=== PATIENT | female | born 1980 | race Caucasian/White ===

== ENCOUNTER 2022-04-11 12:53 | Emergency (ER) | payer OTHER, SELFPAY ==
--- NOTE | 2022-04-11 12:57 | ED.SKABFB ---
HPI - Skin/Abscess/Foreign Bdy General Chief complaint: Skin/Abscess/Foreign Body Stated complaint: Sunburn/Feet Swelling Time Seen by Provider: 04/11/22 12:57 Source: patient and RN notes reviewed History of Present Illness HPI narrative: Patient is a 41-year-old female who presents the urgent care with complaints of bilateral feet swelling due to diffuse sunburn. Patient states that she was at [employer] on Sunday and used 30 SPF. Patient states she did reapply the sunscreen several times. States that she has been taking ibuprofen for the pain and using aloe. Denies of any lethargy, fatigue, palpitations. No other acute complaints. No acute distress noted. Patient aware of the plan of care. Some parts of this dictation were generated by voice recognition software and may contain typographical and/or grammatical inaccuracies. Related Data Home Medications Medication Instructions Recorded Confirmed No Home Medications 04/11/22 04/11/22 Allergies Allergy/AdvReac Type Severity Reaction Status Date / Time No Known Allergies Allergy Verified 04/11/22 13:05 Review of Systems Review of Systems: CONSTITUTIONAL: Denies fever, chills, or sweats. EYES: Denies visual changes, redness, or discharge. ENT: Denies rhinorrhea, congestion, sore throat, or otalgia. CARDIOVASCULAR: Denies chest pain, palpitations, or edema. RESPIRATORY: Denies cough or dyspnea. GASTROINTESTINAL: Denies abdominal pain, nausea, vomiting, or diarrhea. GENITOURINARY: Denies dysuria or hematuria. SKIN: Reports of painful sunburn MUSCULOSKELETAL: Denies back pain, joint pain, or myalgia. Reports of bilateral feet swelling NEUROLOGIC: Denies headache, numbness, or weakness. All other systems reviewed are negative, except as documented in HPI. PMFSH Comments At the time of my signature, I reviewed and agree with the nursing past medical, surgical, social, and family history. There is no relevant family history pertinent to the patient complaint. Exam Narrative: GENERAL: This is a well-nourished, well-developed patient, in no apparent distress. HEAD: normocephalic, atraumatic. EYES: PERRL. Sclera clear/white. Vision is grossly intact. EARS: External ears normal NOSE: External nose normal with no obvious nasal discharge, nares without redness, no rhinorrhea. THROAT: Mucous membranes moist NECK: Neck supple CARDIOVASCULAR: Regular rate and rhythm without murmurs, gallops, or rubs. RESPIRATORY: Clear to auscultation. Breath sounds equal bilaterally. No wheezes, rales, or rhonchi. SKIN: First-degree nonblistering sunburn diffusely noted without involving the trunk. NEURO: awake, alert, and oriented to person, place and time. There were no obvious focal neurologic abnormalities. EXTREMITIES: Bilateral nonpitting lower extremity edema with positive strong bilateral pedal pulses. Course Course Level of Care: Express Care Visit Vital Signs Vital signs: Vital Signs Temperature 98.3 F 04/11/22 13:02 Pulse Rate 96 04/11/22 13:02 Respiratory Rate 16 04/11/22 13:02 Blood Pressure 150/71 H 04/11/22 13:02 Pulse Oximetry 98 04/11/22 13:02 Oxygen Delivery Room Air 04/11/22 13:02 Temperature 98.3 F 04/11/22 13:02 Pulse Rate 96 04/11/22 13:02 Respiratory Rate 16 04/11/22 13:02 Blood Pressure 150/71 H 04/11/22 13:02 Pulse Oximetry 98 04/11/22 13:02 Oxygen Delivery Room Air 04/11/22 13:02 Reviewed-patient is informed that they may have pre-hypertension or hypertension based on a blood pressure reading in the department. I recommend the patient call the primary care provider listed on their discharge instructions or a physician of their choice this week to arrange follow-up for further evaluation of possible pre-hypertension or hypertension. MDM - Skin/Abscess/Foreign Bdy MDM Narrative Medical decision making narrative: Advised patient to cool her body down with clots. Continue to use aloe. Do not go out in the sun
[2022-04-11 13:02] VITALS: BP 150/71; PULSE 96; RESP 16; TEMP 36.8; O2SAT 98
== END 2022-04-11 13:13 | disposition home or self-care (01) ==
PROVIDERS: Emergency Provider Nurse Practitioner Family
DX: L55.0 Sunburn of first degree (principal)
CPT/HCPCS: 99212; G0463

== ENCOUNTER 2023-12-29 16:26 | Emergency (ER) | payer OTHER, SELFPAY ==
--- NOTE | ~2023-12-29 | XR_ITS ---
EXAMINATION: XR knee LT min 4V DATE: 12/29/2023 16:58 INDICATION: Left knee pain. TECHNIQUE: 6 views of left knee were obtained. COMPARISON: None. FINDINGS: Bone alignment is normal. No fracture. There is mild tricompartmental osteoarthritis. No kn ee joint effusion. IMPRESSION: 1. Mild left knee osteoarthritis. Reviewed, dictated and finalized at location [facility]
[2023-12-29 16:32] VITALS: BP 121/71; PULSE 64; RESP 20; TEMP 36.4; O2SAT 100
--- NOTE | 2023-12-29 17:22 | ED.LOWEXIN ---
HPI - Extremity Injury (Lower) General Chief Complaint: Extremity Injury, Lower Stated Complaint: left knee pain Time Seen by Provider: 12/29/23 17:15 Source: patient, RN notes reviewed and old records reviewed Mode of arrival: ambulatory Limitations: no limitations History of Present Illness HPI Narrative: 43 year old female present to [facility] care with complaints of left knee pain for the past week with no known injury. Patient reports that she was kneeling on concrete a few days ago moving box at work. 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 Patient reports pain mainly toarea under knee cap anteriorly with some pressure also to posterior knee region. Patient describes pain as ache with some sharp shoting pain at times, tightmness mainly to posterior aspect of left knee, no acute swelling noted. Patient does have noted limping gait. MD complaint: other (left knee pain) Onset (ago): week(s) (increased pain for week) Severity scale (1-10): 6 Treatments prior to arrival: other (diclofenac ointment) Related Data Home Medications Medication Instructions Recorded Confirmed No Home Medications 04/11/22 12/29/23 Allergies Allergy/AdvReac Type Severity Reaction Status Date / Time No Known Allergies Allergy Verified 12/29/23 17:26 Review of Systems Review of Systems: CONSTITUTIONAL: Denies fever, chills, or sweats. EYES: Denies visual changes, redness, or discharge. ENT: Denies rhinorrhea, congestion, sore throat, or otalgia. CARDIOVASCULAR: Denies chest pain, palpitations, or edema. RESPIRATORY: Denies cough or dyspnea. GASTROINTESTINAL: Denies abdominal pain, nausea, vomiting, or diarrhea. GENITOURINARY: Denies dysuria or hematuria. SKIN: Denies rash or itching. MUSCULOSKELETAL: Denies back pain, increased left knee pain , or myalgia. NEUROLOGIC: Denies headache, numbness, or weakness. PSYCHIATRIC: Denies anxiety or depression. All systems reviewed & are unremarkable except as noted in HPI and below PMFSH Surgical History Surgical History (Updated 12/29/23 @ 19:04 by Elizabeth Herr NP) H/O: hysterectomy Previous section Social History Social History (Updated 12/29/23 @ 19:06 by Elizabeth Herr NP) Smoking packs per day: 0.5 Smoking cigarettes per day: 10.0 Smoking status: Current every day smoker Alcohol intake: current Alcohol use details: social Substance use type: does not use Living arrangements: with family Gender identity (if verbalized by the patient): Female Comments At time of signature, agree with nursing past medical, surgical, social and family history. There is no relevant family history pertinent to the presenting complaint Exam Narrative: GENERAL: Well-appearing, well-nourished,obese and in no acute distress. HEAD: Normocephalic, atraumatic. EYES: PERRLA and EOMI. ENT: Nares clear, no rhinorrhea or epistaxis. Mucous membranes moist.TM's normal throat normal with no swelling present NECK: Supple. no lymphadenopathy CHEST: Clear to auscultation. No respiratory distress. SAO2 100% HEART: Regular rate and rhythm. No murmur heard. Normal peripheral pulses. ABDOMEN: Soft, nontender, nondistended, normal active bowel sounds. EXTREMITIES: Normal range of motion. No acute edema. reports pain to the left knee at area below knee cap with stated tightness to the posterior aspect of left knee. Patient has some limp noted to her gait on left knee with increased pain with activity. Circulation,sensation, and mobility. intact to left knee but with increased pain with ambulation and bending knee. SKIN: Warm, dry, no rash. NEURO: No focal deficits. Alert and oriented x3. Course Course Emergency Course: Patient is aware of diagnosis, understands and agrees to treatment plan.? Anticipatory guidance given.? Patient agrees to follow-up as directed and is aware of reasons to seek care at the emergency department. Portions of this re
== END 2023-12-29 17:40 | disposition home or self-care (01) ==
PROVIDERS: Emergency Provider Registered Nurse
DX: M25.562 Pain in left knee (principal); M17.12 Unilateral primary osteoarthritis, left knee; F17.210 Nicotine dependence, cigarettes, uncomplicated
CPT/HCPCS: 73564; 99213; G0463